=== PATIENT | female | born 1970 | race Caucasian/White ===

== ENCOUNTER → 2023-03-17 | Outpatient (CLI) | payer BC ==
[~2023-03-17] MED LIST: CYMBALTA60 MG PO; ZOLOFT 100MG100 MG PO
[2023-03-17 09:38] LABS: ALBUMIN 4.2 g/dL (3.5-5.0)
[2023-03-17 09:40] LABS: CALCIUM 9.9 mg/dL (8.3-10.5)
[2023-03-17 09:41] LABS: TOTAL PROTEIN 7.6 g/dL (6.4-8.3)
[2023-03-17 09:43] LABS: TOTAL BILIRUBIN 0.6 mg/dL (0.2-1.2)
== END ==
LOC: LAB 09:12
PROVIDERS: Family Medicine
DX: R74.8 Abnormal levels of other serum enzymes (principal)